=== PATIENT | female | born 1995 | race Caucasian/White ===

== ENCOUNTER 2018-12-12 14:45 | Outpatient (REF) | payer BC, SELFPAY ==
--- NOTE | 2018-12-12 13:00 | PAPFT_PTH ---
PATIENT: Zahraa Ventura LOC: N U#:[id number] AGE/SX: 23/F ROOM: RE12/12/[address]: CARLY Hong : 1995 BED: DIS: 12/12/2018 SPEC #: [id number] RECD: 12/12/18 18:18 STATUS: AMINTA REQ #: [id number] PARI: 12/12/18 13:[address]: Yazmin Leung DEPT: [facility] Cytology RECD BY: Lyric Steiner ENTERED: 12/12/18 18:18 SP TYPE: PAPFT OTHR DR: Jose Armando Adler MD Tissues: 1 - CX/ENDOCX FOR PAP SMEARS Procedures: PAP THIN PREP/[facility] Screening Comments: [id number]
== END 2018-12-12 15:05 ==
LOC: LBN 14:45
PROVIDERS: PCP Pediatrics; Visit Provider Nurse Practitioner Family
DX: Z12.4 Encounter for screening for malignant neoplasm of cervix (principal)
CPT/HCPCS: 88142

== ENCOUNTER 2020-01-26 14:14 | Outpatient (REF) | payer BC, SELFPAY ==
--- NOTE | 2020-01-26 13:00 | PAPFT_PTH ---
PATIENT: Zahraa Ventura LOC: [facility] U#:[id number] AGE/SX: 24/F ROOM: RE01/26/[address]: CARLY Hong : 1995 BED: DIS: 01/26/2020 SPEC #: [id number] RECD: 01/30/20 13:02 STATUS: AMINTA [place] #: [id number] PARI: 01/26/20 13:[address]: Yazmin Leung DEPT: [facility] Cytology RECD BY: Lyric Steiner ENTERED: 01/30/20 13:02 SP TYPE: PAPFT OTHR DR: Jose Armando Adler MD Tissues: 1 - CX/ENDOCX FOR PAP SMEARS Procedures: PAP THIN PREP/UVM Screening Comments: [id number]
[2020-01-29 15:47] LABS: Chlamydia Result Negative (Negative); GC Result Negative (Negative)
== END 2020-01-26 14:34 ==
LOC: LBN 14:14
PROVIDERS: PCP Pediatrics; Visit Provider Nurse Practitioner Family
DX: Z11.3 Encounter for screening for infections with a predominantly sexual mode of transmission (principal); Z12.4 Encounter for screening for malignant neoplasm of cervix
CPT/HCPCS: 87491; 87591; 88142

== ENCOUNTER 2021-05-13 04:43 | Outpatient (CLI) | payer MEDICAID, SELFPAY ==
[2021-05-13 14:42] LABS: Kit/Specimen SENT
[2021-05-13 14:55] LABS: Abs Immature Grans 0.02 10^3/uL (0.0-0.06); Absolute Basophil Count 0.03 10^3/uL (0.0-0.2); Absolute Eosinophil Count 0.03 10^3/uL (0.0-0.7); Absolute Lymphocyte Count 2.17 10^3/uL (1.2-3.4); Absolute Monocyte Count 0.31 10^3/uL (0.1-0.8); Absolute Neutrophil Count 5.25 10^3/uL (1.2-6.7); Basophils % 0.4; Eosinophils % 0.4; HCT 35.7 % (36.0-46.0); Immature Grans % 0.3; Lymphocytes % 27.8; MCH 28.6 pg (27.0-33.0); MCHC 33.6 % (32.0-36.0); MPV 10.4 fL (8.0-11.0); Neutrophils % 67.1; Nucleated RBC 0 %; Platelet Count 284 10^3/uL (130-400); RDW 13.4 % (11.7-14.6); RDW-SD 41.8 fL; WBC 7.81 10^3/uL (4.4-10.8)
[2021-05-13 15:04] LABS: Glucose,1 Hr (Glucola) 175 mg/dL (80-140)
[2021-05-13 16:35] LABS: TSH (W/Ref FT4) 0.22 uIU/mL (0.36-3.74)
[2021-05-14 18:10] LABS: Hepatitis B Surface Ag Negative (Negative)
[2021-05-14 18:15] LABS: Hepatitis C Ab w Rflx HCV PCR Negative (Negative)
[2021-05-14 18:51] LABS: HIV-1/2 Ag & Ab Screen Negative (Negative)
[2021-05-15 10:27] LABS: Varicella IgG Antibody Positive (See Note)
[2021-05-15 10:44] LABS: Rubella IgG Ab (UVM) Positive (See Note)
[2021-05-16 11:36] LABS: Syphilis Total Ab w/Reflex Nonreactive (Nonreactive)
== END 2021-05-13 04:44 | disposition home or self-care (01) ==
LOC: LBO 04:43
PROVIDERS: Advanced Practice Midwife; Visit Provider Advanced Practice Midwife
DX: O99.211 Obesity complicating pregnancy, first trimester (principal); Z68.41 Body mass index [BMI] 40.0-44.9, adult; Z11.4 Encounter for screening for human immunodeficiency virus [HIV]; Z11.59 Encounter for screening for other viral diseases; Z01.84 Encounter for antibody response examination; Z3A.10 10 weeks gestation of pregnancy
CPT/HCPCS: 82950; 86787; 86803; 86850; 86900; 86901; 87340; 87389; 84439; 84443; 85025; 86762; 86780

== ENCOUNTER 2021-05-13 18:31 | Outpatient (REF) | payer MEDICAID, SELFPAY ==
[2021-05-13 22:10] LABS: *AMPHETAMINES SCREEN URINE Negative (Negative); *BARBITURATES SCREEN URINE Negative (Negative); *BENZODIAZEPINES SCREEN URINE Negative (Negative); Cannabinoids THC Negative (Negative); Cocaine Screen,Urine Negative (Negative); METHADONE URINE SCREEN Negative (Negative); OPIATES URINE SCREEN Negative (Negative)
[2021-05-13 22:17] LABS: Tricyclic Antidepressants Negative (Negative)
[2021-05-15 14:51] LABS: Chlamydia Result Negative (Negative); GC Result Negative (Negative)
[2021-05-20 09:57] LABS: Buprenorphine Negative ng/mL (Cutoff: 5.0); Norbuprenorphine Negative ng/mL (Cutoff: 2.5)
== END 2021-05-13 18:32 | disposition home or self-care (01) ==
LOC: LBN 18:31
PROVIDERS: Visit Provider Advanced Practice Midwife
DX: Z11.3 Encounter for screening for infections with a predominantly sexual mode of transmission; Z3A.10 10 weeks gestation of pregnancy; Z34.91 Encounter for supervision of normal pregnancy, unspecified, first trimester
CPT/HCPCS: 80307; 87491; 87591; 87086

== ENCOUNTER 2021-05-23 01:23 | Outpatient (CLI) | payer MEDICAID, SELFPAY ==
[2021-05-23 09:20] LABS: Glucose 1 Hour 166 mg/dL
[2021-05-23 11:28] LABS: Glucose 3 Hour 111 mg/dL
== END 2021-05-23 01:24 | disposition home or self-care (01) ==
LOC: LBO 01:24
PROVIDERS: Visit Provider Advanced Practice Midwife
DX: Z34.91 Encounter for supervision of normal pregnancy, unspecified, first trimester; R73.09 Other abnormal glucose; Z68.41 Body mass index [BMI] 40.0-44.9, adult
CPT/HCPCS: 36410; 82951

== ENCOUNTER 2021-06-02 11:58 | Emergency (ER) | payer MEDICAID, SELFPAY ==
[2021-06-02 12:02] VITALS: BP 111/67; PULSE 73; RESP 19; TEMP 36.9; O2SAT 100
--- NOTE | 2021-06-02 12:26 | ED.GENADUL_ITS ---
Discharge Plan Disposition Patient Disposition: HOME Condition: Improving Discharge Details Clinical Impression: Nausea and vomiting in Primary Care Provider: Unknown,Unknown ED Provider: Marielos Sanders Home Meds and New Rx's Prescriptions: New promethazine 25 mg suppository 25 mg AR Q6H PRN (Reason: nausea and vomiting) Qty: 12 RF: 0 Continued PNV cmb#95-ferrous fumarate-FA 28 mg iron- 800 mcg tablet 1 tab PO DAILY RF: 0 ondansetron 4 mg tablet,disintegrating 4 mg PO Q6H Qty: 20 RF: 2 Discharge Instructions Instructions: Acute Nausea and Vomiting (ED) Additional Instructions: Your labs and exam reassuring here today. Please encourage hydration with frequent sips of fluids. You may use the Phenergan as prescribed. This is a rectal suppository to be used every 6 hours as needed. It will make you sleepy, please not drive medication. Please keep your upcoming appointment with women's wellness. If you develop fever, chills, inability stay hydrated or other new/seek care urgently once again. Referrals: Ana Bliss [[facility] NURSE CULINARY ARTIST] - Discharge Data Discharge Date/Time-TO BE ENTERED AT DEPARTURE: 06/02/21 14:05 Medical Decision Making Patient is a pleasant 25 year old female, , presenting today with c/ cof N/V in second trimester of . Has had difficulty with hyperemesis but this has been increasing over the past 3 days. Denies fever/shiclls. No change in bowel habits. Denies hematemesis. Denies abdominal pain. No cramping or vaginal discharge/bleeding. Sent here from for 1/2hr vomiting x 24 hours. Used zofran last on Wednesday with no improvement in symptoms. Denies SOB or CP. No dysurea. On exam, she appears non toxic. Her VS are stable. No pertoneal findings on exam. Will hydrate and obtain labs. Will give zofran IV. Labs reviewed, no luekocytosis, stable H&H. No electrolyte abnormalities. Reevaluated. She denies any vomiting seen being here. She reports feeling improved. Plan for discharge to home. Encourage frequent sips of fluids. I did speak with Dr. Castillo regarding patient's difficulty staying hydrated. She agrees with plan for rectal Phenergan. We will send this to the patient's pharmacy of choice. Strict return precautions were discussed. She has an appointment in 1 week with women's wellness. All questions and concerns were addressed and she is in agreement with this plan. HPI General Mode of arrival: ambulatory . Date/Time Provider Initiated Documentation: 06/02/21 12:00 . Limitations to Documentation: no limitations . Information obtained by: patient, RN notes reviewed and old records reviewed . History of Present Illness 25 year old F presents to the emergency department with the chief complaint of nausea and vomiting, described as severe (vomiting every 30 minutes), Quality is described as other (patient denies any pain), and is localized to the abdomen. Patient reports no radiation. Patient started experiencing this day(s) and it has been constant. No relieving factors improve symptom(s), Eating worsens symptoms . Patient notes loss of appetite and nausea/vomiting; denies chest pain, cough, fever/chills, rash and shortness of breath. Patient did receive the following treatments prior to arrival, other (zofran) Related Data Home Medications Medication Instructions Recorded Confirmed vit no.95-ferrous 1 tab PO DAILY 02/25/21 05/13/21 fumarate 28 mg-folic acid 800 mcg tablet ondansetron 4 mg disintegrating 4 mg PO Q6H #20 tab 05/23/21 06/02/21 tablet promethazine 25 mg AR Q6H PRN #12 ea 06/02/21 Previous Rx's Medication Instructions Recorded ondansetron 4 mg disintegrating 4 mg PO Q6H #20 tab 05/23/21 tablet promethazine 25 mg AR Q6H PRN #12 ea 06/02/21 Allergies Allergy/AdvReac Type Severity Reaction Status Date / Time amoxicillin trihydrate Allergy Intermediate HIVES Verified 05/13/21 12:55 [From Augmentin] potassium clavulanate Allergy Intermediate HIVES Verified 05/13/21 12:55 [From Augmentin] Sulfa (Sulfonamide Allergy Mild RASH Verified 05/13/21 12:55 Antibiotics) General Stated Complaint: Nausea/Vomit/Diar LALO: 4 Review of Systems Constitutional Constitutional: Reports as per HPI, Denies chills, Denies fatigue, Denies fever(s) and Denies headache(s) ENT Ears, Nose, Mouth, and Throat: Denies headache(s) Cardiovascular Cardiovascular: Reports as per HPI, Denies chest pain and Denies dyspnea Respiratory Respiratory: Reports as per HPI, Denies cough and Denies dyspnea Gastrointestinal Gastrointestinal: Reports as per HPI Musculoskeletal Musculoskeletal: Reports as per HPI and Denies back pain Integumentary/Breasts Skin/Breast: Reports as per HPI and Denies rash Neurologic Neurologic: Reports as per HPI and Denies headache(s) Endocrine Endocrine: Denies fatigue [facility] Medical History (Updated 06/02/21 @ 13:52 by LISSETH Fraser) Body mass index (BMI) of 40.1 to 44.9 in adult Surgical History Cholecystectomy (06/06/14) and hernia repair - Dr Atwood Family History (Updated 05/13/21 @ 13:08 by Maddy Fung CNM) Mother Essential hypertension Gestational diabetes Depression Father Colon polyp Grandfather Personal history of malignant neoplasm colon Maternal Aunt Personal history of malignant neoplasm breast Social History Smoking/Tobacco Use Status: Never Smoking risk assessment performed?: Yes Alcohol Intake: never Drug use: Never Substance use type: does not use Do you feel safe at home: Yes Do you feel safe in your relationship?: Yes History History 1 Para 0 Hx # Term Pregnancies 0 Multiple births 0 Hx # Pregnancies 0 Ectopic pregnancies 0 AB induced 0 Hx Number of Living Children 0 AB spontaneous 0 Exam Const General: cooperative, healthy appearing, comfortable, no acute distress and well developed Nutritional Appearance: average body habitus and well nourished Orientation: alert and awake HENMT Head: normal to inspection Mouth: moist mucous membranes Resp Effort & Inspection: normal respiratory effort, able to speak in complete sentences and no respiratory distress Auscultation: clear to auscultation bilaterally, no rales, no rhonchi and no wheezes Cardio Rate: regular rate Rhythm: regular rhythm Heart Sounds: S1 normal and S2 normal GI Inspection: normal to inspection Palpation: soft, no hepatosplenomegaly, no guarding and nontender Percussion: normal to percussion Auscultation: normal bowel sounds Back/Spine/Pelvis Back: no CVA tenderness Skin General skin exam: no rashes or lesions noted Trauma: no lacerations or abrasions Neuro General: patient alert and patient awake Cognition: normal cognition Speech: speech normal Gait: normal gait Psych Appearance: grossly normal and well kempt Mental Status: mental status grossly normal Speech and Movement: speech and movement normal Course Vital Signs Vital signs: Vital Signs Temperature 36.9 C 06/02/21 12:02 Pulse 73 06/02/21 12:02 Respiratory Rate 19 06/02/21 12:02 Blood Pressure 111/67 06/02/21 12:02 Pulse Oximetry 100 06/02/21 12:02 Temperature 36.9 C 06/02/21 12:02 Temperature Source Temporal Artery Scan 06/02/21 12:02 Pulse 73 06/02/21 12:02 Respiratory Rate 06/02/21 12:02 Respiratory Effort 06/02/21 12:06 Blood Pressure 111/67 06/02/21 12:02 Blood Pressure Position Sitting 06/02/21 12:02 Pulse Oximetry 100 06/02/21 12:02 Oxygen Delivery Method Room Air 06/02/21 12:02 Oxygen Flow Rate 0 06/02/21 12:02 Pain Level 0 06/02/21 12:02
[2021-06-02] MEDS: Ondansetron 4 MG/2 ML VIAL IVP (12:42)
[2021-06-02] MEDS: Normal Saline 1,000 ML 1000 ML IV ×2 (12:42→13:45)
[2021-06-02 12:47] LABS: Abs Immature Grans 0.02 10^3/uL (0.0-0.06); Absolute Basophil Count 0.02 10^3/uL (0.0-0.2); Absolute Eosinophil Count 0.03 10^3/uL (0.0-0.7); Absolute Lymphocyte Count 1.86 10^3/uL (1.2-3.4); Absolute Neutrophil Count 5.57 10^3/uL (1.2-6.7); Basophils % 0.3; Eosinophils % 0.4; HCT 36.8 % (36.0-46.0); HGB 12.3 g/dL (11.2-15.7); Immature Grans % 0.3; Lymphocytes % 23.8; MCH 28.5 pg (27.0-33.0); MCHC 33.4 % (32.0-36.0); MCV 85.2 fL (80-95); Monocytes % 3.8; Neutrophils % 71.4; Nucleated RBC 0 %; Platelet Count 272 10^3/uL (130-400); RBC 4.32 10^6/uL (3.93-5.22); RDW 13.5 % (11.7-14.6); RDW-SD 42.1 fL
[2021-06-02 13:29] LABS: ALT 37 U/L (14-59); AST 32 U/L (15-37); Albumin 3.3 g/dL (3.4-5.0); Alkaline Phosphatase 81 U/L (46-116); Anion Gap 10.9 mmol/L (3-11); BUN 7 mg/dL (7-18); Bilirubin, Total 0.5 mg/dL (0.2-1.0); CO2 23.1 mmol/L (21.0-32.0); CREATININE 0.5 mg/dL (0.55-1.02); Chloride 104 mmol/L (98-107); Glucose 69 mg/dL (74-106); Potassium 3.8 mmol/L (3.5-5.1); Sodium 138 mmol/L (136-145); Total Protein 7.1 g/dL (6.4-8.2)
[2021-06-02 14:03] LABS: Bilirubin Small (Negative); Blood Trace-intact (Negative); Clarity Sl Cloudy (Clear); Glucose Negative (Negative); Ketones >=160 mg/dL (Negative); Leukocyte Esterase Trace (Negative); Nitrite Negative (Negative); Specific Gravity >= 1.030 (1.005-1.025); pH 5.5 (5-8)
[2021-06-02 14:13] LABS: Bacteria Moderate HPF (Negative); C & S Indicated? Yes; Casts Negative LPF (Negative); Crystals Negative HPF (Negative); Epithelial Cells Few HPF (Negative); Mucus Trace (Negative); RBC 0-2 HPF (0-2)
== END 2021-06-02 14:05 | disposition home or self-care (01) ==
PROVIDERS: Emergency Provider Physician Assistant
DX: O21.0 Mild hyperemesis gravidarum (principal); Z3A.13 13 weeks gestation of pregnancy
CPT/HCPCS: 36415; 80053; 96361; 96374; 99284; 81003; 81015; 83735; 85025; 87086; 99283; J2405

== ENCOUNTER 2021-07-14 00:09 | Outpatient (CLI) | payer MEDICAID, SELFPAY ==
--- NOTE | 2021-07-14 07:47 | DI.US_ITS ---
Exam(s) US OB 2-3 TRIMESTER EXAM: US OB 2-3 TRIMESTER CLINICAL HISTORY: ,z34.90. TECHNIQUE: Transabdominal obstetrical ultrasound performed. COMPARISON: US PELVIS TRANSVAG from 05/08/2014 FINDINGS: Transabdominal obstetrical ultrasound performed. FINDINGS: Number of fetuses: One. position: Varied throughout the examination. heart rate: 157 bpm. Placental location: There is a grade 0 posterior placenta. The placental tip is 4.9 cm from the inte rnal os. No evidence of previa. Amniotic fluid index: Amount of fluid is within normal limits. ANATOMICAL SURVEY: Within normal limits. BIOMETRIC DATA: BPD: 4.8cm consistent with 20 weeks 3 days. HC: 18cm consistent with 20 weeks 3 days. AC: 14.2cm consistent with 19 weeks 4 days. FL: 2.9cm consistent with 19 weeks. Cisterna Magna: 2.5 mm Cerebellum: 1.9 cm EFW: 293 grms 80% Composite Age: 19 weeks 6 days EDC by US: 12/02/2021 Heart Rate: 157BPM IMPRESSION: 1. Single live intrauterine gestation as above. 2. Normal anatomic survey. DATA REPOSITORY:
== END 2021-07-14 00:29 ==
PROVIDERS: Visit Provider Advanced Practice Midwife
DX: Z34.92 Encounter for supervision of normal pregnancy, unspecified, second trimester (principal); Z3A.19 19 weeks gestation of pregnancy
CPT/HCPCS: 76805

== ENCOUNTER 2021-09-26 01:53 | Outpatient (CLI) | payer MEDICAID, SELFPAY ==
[2021-09-26 09:11] LABS: Hemoglobin A1C 4.9 % (<5.7)
[2021-09-26 09:44] LABS: FREE T4 0.94 ng/dL (0.76-1.46); TSH 1.59 uIU/mL (0.36-3.74)
== END 2021-09-26 01:54 | disposition home or self-care (01) ==
LOC: LBO 01:53
PROVIDERS: Visit Provider Advanced Practice Midwife
DX: O92.79 Other disorders of lactation (principal); R79.89 Other specified abnormal findings of blood chemistry
CPT/HCPCS: 36415; 83036; 84439; 84443

== ENCOUNTER 2021-09-26 10:51 | Outpatient (REF) | payer MEDICAID, SELFPAY ==
--- OUTSIDE RECORDS SUMMARY | 2021-09-26 10:54 | XMS_ITS ---
:1995 Author Care Team Providers Name Role Phone ZAID ANAND Primary Care Provider [phone] Allergies Code Code System Name Reaction Severity Status Onset 301478 RxNorm Augmentin Hives Moderate Active ? 3224154 RxNorm Mushroom Hives Moderate Active ? Sulfa ? ? Active ? (Sulfonamide Antibiotics) Notes: seafood per pt packet Medications Name Status Start Date Stop Date ? ? azithromycin 250 mg tablet Active ? Not a vailable benzonatate 200 mg capsule Active ? Not a vailable clindamycin HCl 150 mg capsule Completed ? 0 09/25/2020 Compazine 10 mg tablet Active ? Not avail able Take 1 tablet 3 times a day by oral route. Estarylla 0.25 mg-35 mcg tablet Completed ? 01/17/2021 TK 1 T PO DAY Ortho-Cyclen (28) Completed ? 09/18/2019 1 tablet po daily Tylenol 325 mg tablet Active ? Not availa ble Take 2 tablets every 8 hours by oral route as needed. Notes: Problems Name Status Onset Date Source ? Nodule of Lung Unknown 10/02/2020 ? Solitary Nodule of Lung Active 10/02/2020 ? Non-smoker Active 01/17/2021 ? Trying to Conceive Active 01/17/2021 ? Procedures Date Name Performed by ? 09/06/2013 Hernia Repair Umbilical Information not available 09/06/2013 Cholecystectomy Information not avai lable 09/06/1996 Adenoidectomy Information not avai lable 09/25/2020 XR, Foot, 3 or More View [facility] (Internal) [address] [place] [address] (Work Place) 09/25/2020 XR, Ankle, 2 View [facility] Radiology (Internal) [address] [place] [address] (Work Place) 09/25/2020 XR, Ankle, 3 or More View [facility] Radiology (Internal) [address], [place] [id number] (Work Place) 06/27/2021 XR, Chest, 2 View [facility] Radiology (Internal) [address] [place] [address] (Work Place) Results Lab Results Date Name Specimen Result Interpretation Description Value Range Status Address ? 08/11/2021 CBC W/ BLD High Wbc 12.5 10*3/uL 5.0-10.0 Final [place] Auto Diff 10*3/uL [facility] L ab (Internal) : [address] ? ? BLD Low Rbc 3.76 10*6/uL 4.10-5.30 Final N orth 10*6/uL [facility] L ab (Internal) : [address] ? ? BLD Low Hgb 11.0 g/dL 12.0-16.0 Final Nort h g/dL [facility] L ab (Internal) : [address] t ? ? BLD Low Hct 32.9 % 37.0-47.0 Final [facility] L ab (Internal) : [address] t ? ? BLD ? Mcv 87.5 fL 80.0-96.0 Final [facility] L ab (Internal) : [address] t ? ? BLD ? Mch 29.3 pg 26.0-32.0 Final [facility] L ab (Internal) : [address] t ? ? BLD ? Mchc 33.4 g/dL 31.0-35.0 Final Nort h g/dL [facility] L ab (Internal) : [address] ? ? BLD ? Rdw 13.7 % 11.5-14.5 Final [facility] L ab (Internal) : [address] ? ? BLD ? Plt 310 10*3/uL 130-450 Final Nort h 10*3/uL [facility] L [facility] (Internal) : [address] t 08/11/2021 BMP, Serum S ? g/r 86 mg/dL 74-106 Final [facility] or Plasma mg/dL [facility] : [address] ? ? S ? Bun 7 mg/dL 7-18 Final North mg/dL [facility] L ab (Internal) : [address] t ? ? S ? Crea 0.7 mg/dL 0.6-1.0 Final [facility] mg/dL [facility] L ab (Internal) : [address] t ? ? S ? Ca 9.1 mg/dL 8.5-10.1 Final [facility] mg/dL [facility] ab (Internal) : [address] t ? ? S Low Na 135 mmol/L 136-145 Final [facility] mmol/L [facility] L [facility] (Internal) : [address] ? ? S ? K 3.7 mmol/L 3.5-5.1 Final [facility] mmol/L [facility] (Internal) : [address] t ? ? S ? Cl 102 mmol/l 98-107 Final [facility] mmol/l [facility] (Internal) : [address] ? ? S Low Tco2 19.7 mmol/L 21.0-32.0 Final No rth mmol/L [facility] (Internal) : [address] 08/11/2021 beta-HCG, S High HCG, 5050 mIU/mL 0-6 Final [facility] Quantitati Quant mIU/mL Countr y ve, Serum Hospita l Lab or Plasma ([facility]): [address] 08/11/2021 Differenti BLD High Polys 86 % 40-75 % Final N orth al, Country Manual, Hospital Lab Blood (Internal) : [address] ? ? BLD ? Bands 0 % 0-5 % Final [facility] L ab (Internal) : [address] ? ? BLD Low Lymphs 11 % 20-50 % Final [facility] L ab (Internal) : [address] ? ? BLD ? Teller 3 % 2-10 % Final [facility] L ab (Internal) : [address] ? ? BLD ? Eos 0 % 0-6 % Final [facility] L ab (Internal) : [address] ? ? BLD ? Baso 0 % 0-1 % Final [facility] L ab (Internal) : [address] ? ? BLD ? Atyp 0 % ? Final [facility] L ab (Internal) : [address] ? ? BLD ? Plts, adequate adequate Final [facility] Est. [facility] L ab (Internal) : [address] ? ? BLD ? RBC normal normal Final [facility]Internal[facility] : [address] t 08/11/2021 Neutrophil BLD ? Anc-manu 10.77 10*3/uL ? Final [facility] Count, al [facility] Lab (Anc), (Internal) : Blood [address] 08/11/2021 Nlr-manual BLD High Nlr - 7.82 0.00-3.20 Final [facility] L ab (Internal) : [address] 08/11/2021 Abo Group BLD ? Abo A ? Final Nor th + Rh Type, Countr Blood Hospital L ab (Internal) : [address] ? ? BLD ? Rh positive ? Final [facility] L ab (Internal) : [address] t 08/11/2021 Alpha MISC ? Pamg-1 positive ? Final Nor th Microglobu (Amnisure Cou ntry jesus-1, ) Hospital L ab Placental ([facility]): (Pamg-1), [address], [place], Vaginal Fluid 01/17/2021 Lipid S ? Chol 194 mg/dL 50-200 Final Nor th Panel, mg/dL [facility] Serum Hospital L ab (Internal) : [address] ? ? S High Trig 168 mg/dL 10-150 Final [facility] mg/dL [facility] L ab (Internal) : [address] t ? ? S ? Hdl 52 mg/dL 40-60 Final [facility] mg/dL [facility] L ab (Internal) : [address] ? ? S ? Ldl 108 mg/dL 0-130 Final [facility] mg/dL [facility] L ab (Internal) : [address] 01/17/2021 HbA1C BLD ? Ha1C 5.0 % 4.0-6.0 % Final Nor th (Hemoglobi Countr y n a1C), Hospital Lab Blood (Internal) : [address] 09/27/2020 CBC W/ BLD ? Wbc 8.9 10*3/uL 5.0-10.0 Final [place] Auto Diff 10*3/uL [facility] L ab (Internal) : [address] ? ? BLD ? Rbc 4.45 10*6/uL 4.10-5.30 Final N orth 10*6/uL [facility] (Internal) : [address] ? ? BLD ? Hgb 12.8 g/dL 12.0-16.0 Final Nort h g/dL [facility] (Internal) : [address] ? ? BLD ? Hct 38.9 % 37.0-47.0 Final [facility] L ab (Internal) : [address] ? ? BLD ? Mcv 87.4 fL 80.0-96.0 Final [facility] L ab (Internal) : [address] ? ? BLD ? Mch 28.8 pg 26.0-32.0 Final [facility] L ab (Internal) : [address] ? ? BLD ? Mchc 32.9 g/dL 31.0-35.0 Final Nort h g/dL [facility] (Internal) : [address] ? ? BLD ? Rdw 13.1 % 11.5-14.5 Final [facility] L ab (Internal) : [address] ? ? BLD ? Plt 354 10*3/uL 130-450 Final Nort h 10*3/uL [facility] (Internal) : [address] ? ? BLD ? Anc 5.05 10*3/uL ? Final Nort h [facility] (Internal) : [address] ? ? BLD ? Nlr 1.54 0.00-3.20 Final [facility] L ab (Internal) : [address], [place] ? ? BLD ? Neutro 56.5 % 40.0-75.0 Final [facility] : [address] t ? ? BLD ? Lymph 36.6 % 20.0-50.0 Final [facility] : [address] t ? ? BLD ? Teller 4.9 % 2.0-10.0 Final [facility] : [address] ? ? BLD ? Eos 1.3 % 1.0-6.0 % Final [facility] L ab (Internal) : [address] ? ? BLD ? Baso 0.6 % 0.0-1.0 % Final [facility] L ab (Internal) : [address] ? ? BLD ? Ig 0.1 % 0.0-0.9 % Final [facility] L ab (Internal) : [address] t 09/27/2020 CMP, Serum S ? g/r 87 mg/dL 74-106 Final [facility] or Plasma mg/dL [facility] ([facility] : [address] ? ? S ? Bun 13 mg/dL 7-17 Final [facility] mg/dL [facility] (Internal) : [address] ? ? S ? Crea 0.60 mg/dL 0.52-1.04 Final Nor th mg/dL [facility] (Internal) : [address] ? ? S ? Ca 9.0 mg/dL 8.4-10.2 Final [facility] mg/dL [facility] (Internal) : [address] ? ? S ? Na 139 mmol/L 137-145 Final [facility] mmol/L [facility] (Internal) : [address] ? ? S ? K 3.8 mmol/L 3.5-5.1 Final [facility] mmol/L [facility] (Internal) : [address] ? ? S ? Cl 106 mmol/L 98-107 Final [facility] mmol/L [facility] (Internal) : [address] ? ? S ? Tco2 23.0 mmol/L 22.0-30.0 Final No rth mmol/L [facility] (Internal) : [address] ? ? S ? Tp 7.6 g/dL 6.3-8.2 Final [facility] g/dL [facility] L ab (Internal) : [address] ? ? S ? Alb 4.2 g/dL 3.5-5.0 Final [facility] g/dL [facility] L ab (Internal) : [address] ? ? S ? Tbil 0.3 mg/dL 0.2-1.3 Final [facility] mg/dL [facility] L ab (Internal) : [address] ? ? S ? Alp 82 U/L 50-136 Final [facility] U/L [facility] (Internal) : [address] ? ? S ? Alt 19 U/L 9-52 U/L Final [facility] (Sgpt) [facility] L ab (Internal) : [address] ? ? S ? Ast 30 U/L 14-36 U/L Final [facility] (Sgot) [facility] (Internal) : [address] 09/27/2020 Lipase, S ? Lip 67 U/L 23-300 Final [facility] Serum or U/L [facility] Plasma Hospital L ab (Internal) : [address] 09/27/2020 Urinalysis UR ? UA-color yellow pale Final [facility] , yellow Country Dipstick, Hospita l Lab Reflex (Internal) : Micro [address] ? ? UR ? UA-appea clear clear Final [facility] r [facility] L ab (Internal) : [address] ? ? UR ? UA-spec 1.025 1.003-1.0 Final [facility] Grav 35 [facility] L ab (Internal) : [address] ? ? UR ? UA-pH 5.5 [pH] 4.6-8.0 Final [facility] [pH] [facility] (Internal) : [address] ? ? UR ? UA-leuk negative negative Final Nort h Est [facility] L ab (Internal) : [address] ? ? UR ? UA-nitri negative negative Final Nor th te [facility] ab (Internal) : [address] ? ? UR ? UA-prot negative negative Final Nort [facility] ab (Internal) : [address] t ? ? UR ? UA-gluc negative negative Final Nort [facility] ab (Internal) : [address] ? ? UR ABNORMAL UA-keton 2+ negative Final Nor e [facility] ab (Internal) : [address] ? ? UR ? UA-urobi normal normal Final [facility] ab (Internal) : [address] ? ? UR ? [facility]A-bili negative negative [facility] [address] ? ? UR ABNORMAL UA-blood trace negative Final [facility] ab (Internal) : [address] 09/27/2020 Urinalysis UR ? UA-WBC 0-3 [hpf] 0-3 [hpf] Fi nal [facility] Microscopi Hospit al Lab c (Internal) : [address] ? ? UR ? UA-RBC 0-2 [hpf] 0-2 [hpf] Final [facility] ab (Internal) : [address] ? ? UR ABNORMAL UA-bacte few [hpf] none seen Final [facility] louie [hpf] [facility] ab (Internal) : [address] ? ? UR ABNORMAL UA-epith many [hpf] none seen Final [facility] elial [hpf] [facility] ab (Internal) : [address] ? ? UR ? UA-mucus none seen none seen Final N orth [hpf] [hpf] [facility] ab (Internal) : [address] 09/27/2020 UR ? Hcgu negative negative Final [facility] ab (Internal[facility] : [address] 09/27/2020 Culture UR ? Final microbiology ? Final [facility] ([place] results Country Count), Hospital Lab Urine (Internal) : [address] 12/05/2018 Rapid THRT - Final microbiology ? Final [facility] Strep results [facility], Hospital Lab Throat (Internal) : [address] 03/11/2018 Rapid THRT - Final microbiology ? Final [place] Strep results [facility], Hospital Lab Throat (Internal) : [address] ? Venipunctu ? Location Left Hand ? ? P_nc [place]: [address], [place] ? ? ? Needle 23g Butterfly ? ? P_ nc Primary Care [place]: [address], [place] ? ? ? Number 1 ? ? P_nc Prim carlie of Care Attempts [place]: [address], [place] ? ? ? Successf Yes ? ? P_nc Pr imary ul Care [place]: [address], [place] ? ? ? Dressing Pressure ? ? P_nc Primary Band-aid Care Applied [place]: [address], [place] ? ? ? Initials hj ? ? P_nc Pr imary Care [place]: [address], [place] ? Rapid ? Strep positive ? ? P_nc Mamta anastasia Strep Care Group a, [place] Throat ns: [address], [place] Past Encounters 01/17/2021 Sprain of Left Ankle; Trying to Conceive ; Screening for Cardiovascular System Disease; Active or Passive Immunization [facility] Beltran: [address] [place] [address], Ph. 10/02/2020 Solitary Nodule of Lung [facility]an: [address] [place] [address], Ph. 09/25/2020 Pain in Right Foot; Active or Passive Im munization [facility] Beltran: [address] [place] [address], Ph. Social History Tobacco Smoking Status Never Smoker Vaccine List Vaccine Type DTaP 01/04/1996 02/29/1996 05/02/1996 01/31/1997 11/22/2000 Hep A, ped/adol, 2 dose 12/12/2010 07/17/2011 Hep B, adolescent or pediatric 01/04/1996 02/29/1996 08/02/1996 Hib, unspecified formulation 01/04/1996 02/29/1996 05/02/1996 01/31/1997 HPV, quadrivalent 11/04/2006 01/06/2007 05/12/2007 IPV 01/04/1996 02/29/1996 05/02/1996 11/22/2000 MCV4, unspecified formulation 11/15/2007 01/19/2014 MMR 01/31/1997 11/28/1999 Td (adult), adsorbed 01/17/2021 Tdap 11/15/2007 varicella 05/08/1997 11/04/2006 Plan of Care Reminders Provider Appointments None ? ? recorded. Lab None ? ? recorded. Referral None ? ? recorded. Procedures None ? ? recorded. Surgeries None ? ? recorded. Imaging None ? ? recorded. Vitals 01/17/2021 01:20PM Same Day 20 Height Weight BMI Blood Pressure 154.94 cm 97.98 kg 40.8 kg/m2 114/82 mm[Hg] 10/02/2020 10:20AM Follow Up 20 Height Weight BMI Blood Pressure 154.94 cm 97.07 kg 40.4 kg/m2 112/78 mm[Hg] 09/25/2020 11:20AM Acute 20 Height Weight BMI Blood Pressure 154.94 cm 97.52 kg 40.6 kg/m2 110/66 mm[Hg] 02/20/2020 01:00PM Acute 20 Height Weight BMI Blood Pressure 154.94 cm 93.89 kg 39.1 kg/m2 110/70 mm[Hg] 09/18/2019 03:20PM Same Day 20 Height Weight BMI Blood Pressure 154.94 cm 90.72 kg 37.8 kg/m2 110/70 mm[Hg] 02/20/2019 01:40PM Acute 20 Height Weight BMI Blood Pressure 154.94 cm 91.63 kg 38.2 kg/m2 130/84 mm[Hg]
[2021-09-30 15:09] LABS: Chlamydia Result Negative (Negative); GC Result Negative (Negative)
== END 2021-09-26 10:52 | disposition home or self-care (01) ==
LOC: LBN 10:51
PROVIDERS: Visit Provider Advanced Practice Midwife
DX: Z30.430 Encounter for insertion of intrauterine contraceptive device (principal); Z11.3 Encounter for screening for infections with a predominantly sexual mode of transmission
CPT/HCPCS: 87491; 87591